=== PATIENT | female | born 1955 ===

== ENCOUNTER → 2019-06-30 | Outpatient (REF) | payer OTHER | LOC: M LAB 20:08 | PROVIDERS: ATTEND Physician Assistant | DX: N39.0 Urinary tract infection, site not specified (principal) ==

== ENCOUNTER → 2019-08-14 | Outpatient (REF) | payer OTHER | LOC: M LAB REF 18:12 | PROVIDERS: ATTEND Physician Assistant | DX: R30.0 Dysuria (principal) ==